=== PATIENT | female | born 1940 | race Caucasian/White ===

== ENCOUNTER 2024-11-26 14:55 | Inpatient (IN) | payer MEDICARE, BC ==
--- NOTE | 2024-11-26 15:26 | ED ---
Dizziness HPI - General Chief Complaint: Dizziness Stated Complaint: Dizziness Time Seen by Provider: 11/26/24 15:11 Source: patient, EMS, RN notes reviewed Mode of arrival: EMS Limitations: no limitations - History of Present Illness Initial Comments: This is an 83-year-old female with history of DM presenting via EMS for dizziness for the past 3 hours. Patient states she woke from a nap when she began experiencing dizziness and sensation of room spinning that worsens with position change and head movement. Patient endorses associated nausea and difficulty ambulating attributed to the dizziness. Denies fever, chills, neck stiffness, vision change, chest pain, dyspnea, palpitations, abdominal pain, vomiting/diarrhea. Denies unilateral paresthesia, hemiplegia. MD Complaint: dizziness, difficulty walking Onset/Timin -: hour(s) Timing: awoke with symptoms Description: sense of movement, "room spinning" History of Same: No History of Trauma: No Improves With: remaining still Worsens With: movement - Related Data Home Medications Medication Instructions Recorded Confirmed Enalapril [Vasotec] 2.5 mg PO DAILY 11/26/24 11/26/24 Ezetimibe [Zetia] 10 mg PO DAILY 11/26/24 11/26/24 Famotidine [Pepcid] 20 mg PO DAILY 11/26/24 11/26/24 Furosemide [Lasix] 20 mg PO DAILY 11/26/24 11/26/24 Potassium Chloride ER [K-Dur 10] 10 meq PO DAILY 11/26/24 11/26/24 Rosuvastatin [Crestor] 10 mg PO DAILY 11/26/24 11/26/24 carvediloL [Coreg] 3.125 mg PO BID 11/26/24 11/26/24 metFORMIN HCL [Glucophage] 500 mg PO BID 11/26/24 11/26/24 Allergies Allergy/AdvReac Type Severity Reaction Status Date / Time Penicillins Allergy Itching Verified 11/26/24 15:56 Review of Systems ROS Statement: Those systems with pertinent positive or pertinent negative responses have been documented in the HPI. ROS Other: All systems not noted in ROS Statement are negative. Past Medical History Past Medical History: Diabetes Mellitus History of Any Multi-Drug Resistant Organisms: None Reported Additional Past Surgical History / Comment(s): Open heart surgery Smoking Status: Never smoker Past Alcohol Use History: None Reported Past Drug Use History: None Reported General Exam Limitations: no limitations General appearance: alert, in no apparent distress Head exam: Present: atraumatic, normocephalic, normal inspection Eye exam: Present: normal appearance, PERRL, EOMI, other (Hints exams is nega tive for nystagmus/strabismus). Absent: scleral icterus, conjunctival injection, nystagmus, periorbital swelling Pupils: Present: normal accommodation ENT exam: Present: normal exam, mucous membranes moist Neck exam: Present: normal inspection. Absent: tenderness, meningismus, lymphadenopathy Respiratory exam: Present: normal lung sounds bilaterally. Absent: respiratory distress, wheezes, rales, rhonchi, stridor, accessory muscle use, decreased breath sounds, prolonged expiratory Cardiovascular Exam: Present: regular rate, normal rhythm, normal heart sounds, systolic murmur (3/6). Absent: diastolic murmur, rubs, gallop, clicks GI/Abdominal exam: Present: soft, normal bowel sounds. Absent: distended, tenderness, guarding, rebound, rigid Extremities exam: Present: normal inspection, full ROM, normal capillary refill. Absent: tenderness, pedal edema, joint swelling, calf tenderness Back exam: Present: normal inspection Neurological exam: Present: alert, oriented X3, CN II-XII intact, other (Boissevain stroke negative. Cerebellar tests including [id number], LOTUS and heel to knee tests normal) Psychiatric exam: Present: normal affect, normal mood Skin exam: Present: warm, dry, intact, normal color. Absent: rash Course Vital Signs 11/26/24 11/26/24 11/26/24 15:01 16:52 18:00 Temperature 97.7 F Pulse Rate 73 75 67 Respiratory 18 18 18 Rate Blood Pressure 136/54 149/90 140/73 O2 Sat by Pulse 98 96 94 L Oximetry Medical Decision Making - Medical Decision Making Was pt. sent in by a medical professional or institution (, PA, RELATIONS MGR, urgent care, hospital, or long term...) When possible be specific @ -No Did you speak to anyone other than the patient for history (EMS, parent, family, police, friend...)? What history was obtained from this source @ -No Did you review nursing and triage notes (agree or disagree)? Why? @ -I reviewed and agree with nursing and triage notes Were old charts reviewed (outside hosp., previous admission, EMS record, old EKG, old radiological studies, urgent care reports/EKG's, long term records)? Report findings @ -No old charts were reviewed Differential Diagnosis (chest pain, altered mental status, abdominal pain women, abdominal pain men, vaginal bleeding, weakness, fever, dyspnea, syncope, headache, dizziness, GI bleed, back pain, seizure, CVA, palpatations, mental health, musculoskeletal)? @ -Differential Dizziness: Benign paroxysmal positional Vertigo, Meniere's disease, otitis media, acoustic neuroma, vertebrobasilar insufficiency, cerebellar stroke, encephalitis, hypovolemic, arrhythmia, coronary artery syndrome, anemia, this is not meant to be an all-inclusive list EKG interpreted by me (3pts min.). @ -Sinus rhythm with first-degree AV block, QT prolongation and solitary PVC. Inferior lead Q waves noted. No obvious ST deviation or T wave inversion. Ventricular rate 69 bpm, KODI 218 ms, QRS 129 ms, QTc 469 ms. X-rays interpreted by me (1pt min.). @ -CXR shows no acute pulmonary process with epicardial leads present, contraindicating future MRI. CT interpreted by me (1pt min.). @ -Brain CT shows no acute intracranial process with remote lacunar injuries. U/S interpreted by me (1pt. min.). @ -None done What testing was considered but not performed or refused? (CT, X-rays, U/S, labs)? Why? @ -None What meds were considered but not given or refused? Why? @ -None Did you discuss the management of the patient with other professionals (professionals i.e. , PA, [facility] M[facility], lab, RT, psych nurse, social media sr strategy manager, director digital sales, teacher, driver license reviewing officer, nurse outreach case manager)? Give summary @ -Spoke to Dr. Gardner from [facility] regarding observation admission for patient. Was smoking cessation discussed for >3mins.? @ -No Was critical care preformed (if so, how long)? @ -No Were there social determinants of health that impacted care today? How? (Homelessness, low income, unemployed, alcoholism, drug addiction, transportation, low edu. Level, literacy, decrease access to med. care, senior care, rehab)? @ -No Was there de-escalation of care discussed even if they declined (Discuss DNR or withdrawal of care, Hospice)? DNR status @ -No What co-morbidities impacted this encounter? (DM, HTN, Smoking, COPD, CAD, Cancer, CVA, ARF, Chemo, Hep., AIDS, mental health diagnosis, sleep apnea, morbid obesity)? @ -None Was patient admitted / discharged? Hospital course, mention meds given and route, prescriptions, significant lab abnormalities, going to OR and other p ertinent info. @ -Patient initially provided IV normal saline, Zofran and p.o. meclizine. Lab work notable for glucose 125, BUN 19 and UTI. Troponin negative and WBC 6.60. Checks x-ray and brain CT unremarkable. Patient provided IV Rocephin. Physical exam findings, lab work and imaging unable to provide etiology of dizziness. Patient notes some relief of dizziness with meclizine but states she lives alone and is concerned of return of dizziness. Spoke to Dr. Gardner from [facility] regarding observation admission for patient. Discussed patient with Dr. Perkins. Undiagnosed new problem with uncertain prognosis? @ -No Drug Therapy requiring intensive monitoring for toxicity (Heparin, Nitro, Insulin, Cardizem)? @ -No Were any procedures done? @ -No Diagnosis/symptom? @ -Dizziness, UTI Acute, or Chronic, or Acute on Chronic? @ -Acute Uncomplicated (without systemic symptoms) or Complicated (systemic symptoms)? @ -Complicated Side effects of treatment? @ -No Exacerbation, Progression, or Severe Exacerbation? @ -No Poses a threat to life or bodily function? How? (Chest pain, USA, ME, pneumonia, PE, COPD, DKA, ARF, appy, cholecystitis, CVA, Diverticulitis, Homicidal, Suicidal, threat to staff... and all critical care pts) @ -No - Lab Data Result diagrams: 11/26/24 15:30 11/26/24 15:30 Lab Results 11/26/24 11/26/24 11/26/24 Range/Units 15:30 15:30 15:30 WBC 6.60 (4.50-10.00) 10*3/uL RBC 4.32 (4.10-5.20) 10*6/uL Hgb 12.5 (12.0-15.0) g/dL Hct 37.9 (37.2-46.3) % MCV 87.7 (80.0-97.0) fL MCH 28.9 (27.0-32.0) pg MCHC 33.0 (32.0-37.0) g/dL Plt Count 185 (140-440) 10*3/uL MPV 11.1 (9.5-12.2) fL Immature Gran % (Auto) 0.9 % Neutrophils % 70.6 % Lymphocytes % 16.8 % Monocytes % 8.0 % Eosinophils % 2.6 % Basophils % 1.1 % Immature Gran # 0.06 H (0.00-0.04) 10*3/uL Neutrophils # 4.66 (1.80-7.70) 10*3/uL Lymphocytes # 1.11 (0.90-5.00) 10*3/uL Monocytes # 0.53 (0.20-1.00) 10*3/uL Eosinophils # 0.17 (0.04-0.35) 10*3/uL Basophils # 0.07 (0.00-0.10) 10*3/uL PT (10.0-12.5) sec INR (<1.2) APTT (22.0-30.0) sec Sodium 139 (137-145) mmol/L Potassium 4.0 (3.5-5.1) mmol/L Chloride 106 (98-107) mmol/L Carbon Dioxide 24 (22-30) mmol/L Anion Gap 9 mmol/L BUN 19 H (7-17) mg/dL Creatinine 0.81 (0.52-1.04) mg/dL Est GFR (CKD-EPI)AfAm 78 (>60 ml/min/1.73 sqM) Est GFR (CKD-EPI)NonAf 67 (>60 ml/min/1.73 sqM) Glucose 125 H (74-99) mg/dL Calcium 9.0 (8.4-10.2) mg/dL Total Bilirubin 0.8 (0.2-1.3) mg/dL AST 19 (14-36) U/L ALT 11 (4-34) U/L Alkaline Phosphatase 81 (38-126) U/L Troponin I <0.012 (0.000-0.034) ng/mL Total Protein 6.3 (6.3-8.2) g/dL Albumin 3.9 (3.5-5.0) g/dL Urine Color Urine Appearance (Clear) Urine pH (5.0-8.0) Ur Specific [place] (1.001-1.035) Urine Protein (Negative) Urine Glucose (UA) (Negative) Urine Ketones (Negative) Urine Blood (Negative) Urine Nitrite (Negative) Urine Bilirubin (Negative) Urine Urobilinogen (<2.0) mg/dL Ur Leukocyte Esterase (Negative) Urine RBC (0-5) /hpf Urine WBC (0-5) /hpf Ur Squamous Epith Cells (0-4) /hpf Urine Bacteria (None) /hpf Hyaline Casts (0-2) /lpf Urine Mucus (None) /hpf Urine Yeast (Budding) (None) /hpf 11/26/24 11/26/24 Range/Units 15:30 16:51 WBC (4.50-10.00) 10*3/uL RBC (4.10-5.20) 10*6/uL Hgb (12.0-15.0) g/dL Hct (37.2-46.3) % MCV (80.0-97.0) fL MCH (27.0-32.0) pg MCHC (32.0-37.0) g/dL Plt Count (140-440) 10*3/uL MPV (9.5-12.2) fL Immature Gran % (Auto) % Neutrophils % % Lymphocytes % % Monocytes % % Eosinophils % % Basophils % % Immature Gran # (0.00-0.04) 10*3/uL Neutrophils # (1.80-7.70) 10*3/uL Lymphocytes # (0.90-5.00) 10*3/uL Monocytes # (0.20-1.00) 10*3/uL Eosinophils # (0.04-0.35) 10*3/uL Basophils # (0.00-0.10) 10*3/uL PT 11.3 (10.0-12.5) sec INR 1.0 (<1.2) APTT 21.1 L (22.0-30.0) sec Sodium (137-145) mmol/L Potassium (3.5-5.1) mmol/L Chloride (98-107) mmol/L Carbon Dioxide (22-30) mmol/L Anion Gap mmol/L BUN (7-17) mg/dL Creatinine (0.52-1.04) mg/dL Est GFR (CKD-EPI)AfAm (>60 ml/min/1.73 sqM) Est GFR (CKD-EPI)NonAf (>60 ml/min/1.73 sqM) Glucose (74-99) mg/dL Calcium (8.4-10.2) mg/dL Total Bilirubin (0.2-1.3) mg/dL AST (14-36) U/L ALT (4-34) U/L Alkaline Phosphatase (38-126) U/L Troponin I (0.000-0.034) ng/mL Total Protein (6.3-8.2) g/dL Albumin (3.5-5.0) g/dL Urine Color Yellow Urine Appearance Cloudy H (Clear) Urine pH 6.5 (5.0-8.0) Ur Specific [place] 1.022 (1.001-1.035) Urine Protein Trace H (Negative) Urine Glucose (UA) Negative (Negative) Urine Ketones 1+ H (Negative) Urine Blood Small H (Negative) Urine Nitrite Negative (Negative) Urine Bilirubin Negative (Negative) Urine Urobilinogen 4.0 (<2.0) mg/dL Ur Leukocyte Esterase Large H (Negative) Urine RBC 10 H (0-5) /hpf Urine WBC 134 H (0-5) /hpf Ur Squamous Epith Cells 6 H (0-4) /hpf Urine Bacteria Rare H (None) /hpf Hyaline Casts 1 (0-2) /lpf Urine Mucus Rare H (None) /hpf Urine Yeast (Budding) Few H (None) /hpf Disposition Clinical Impression: Dizziness, UTI (urinary tract infection) Disposition: ADMITTED IP TO THIS [facility] Condition: Fair Referrals: Juma Zimmerman MD [Primary Care Provider] - 1-2 days Time of Disposition: 18:34 Decision Date: 11/26/24 Decision Time: 18:34
[2024-11-26 15:45] LABS: Basophils # (A) 0.07 10*3/uL (0.00-0.10); Basophils % (A) 1.1 %; Eosinophils # (A) 0.17 10*3/uL (0.04-0.35); Eosinophils % (A) 2.6 %; HCT 37.9 % (37.2-46.3); HGB 12.5 g/dL (12.0-15.0); Lymphocytes # (A) 1.11 10*3/uL (0.90-5.00); Lymphocytes % (A) 16.8 %; MCH 28.9 pg (27.0-32.0); MCHC 33.0 g/dL (32.0-37.0); MCV 87.7 fL (80.0-97.0); Monocytes # (A) 0.53 10*3/uL (0.20-1.00); Monocytes % (A) 8.0 %; Neutrophils # (A) 4.66 10*3/uL (1.80-7.70); Neutrophils % (A) 70.6 %; Platelet Count 185 10*3/uL (140-440); RBC 4.32 10*6/uL (4.10-5.20); RDW 14.1 % (11.5-14.5); WBC 6.60 10*3/uL (4.50-10.00)
[2024-11-26] MEDS: SODIUM CHLORIDE 0.9% 1,000 ML IV STA (15:54)
[2024-11-26] MEDS: MECLIZINE 12.5 MG TAB PO STA (15:55)
[2024-11-26] MEDS: ONDANSETRON 4 MG/2 ML VIAL IVP STA (15:56)
[2024-11-26 15:57] LABS: ALT 11 U/L (4-34); AST 19 U/L (14-36); African American GFR (CKD) 78 (>60 ml/min/1.73 sqM); Albumin 3.9 g/dL (3.5-5.0); Alkaline Phosphatase 81 U/L (38-126); Anion Gap 9 mmol/L; Blood Urea Nitrogen 19 mg/dL (7-17); Calcium 9.0 mg/dL (8.4-10.2); Carbon Dioxide 24 mmol/L (22-30); Chloride 106 mmol/L (98-107); Glucose 125 mg/dL (74-99); Non-African American GFR(CKD) 67 (>60 ml/min/1.73 sqM); Potassium 4.0 mmol/L (3.5-5.1); Sodium 139 mmol/L (137-145); Total Protein 6.3 g/dL (6.3-8.2)
[2024-11-26 16:00] LABS: INR 1.0 (<1.2); Partial Thromboplastin Time 21.1 sec (22.0-30.0); Prothrombin Time 11.3 sec (10.0-12.5)
--- NOTE | 2024-11-26 17:02 | XR ---
EXAMINATION TYPE: XR chest 2V DATE OF EXAM: 11/26/2024 4:00 PM COMPARISON: None. CLINICAL INDICATION: Female, 83 years old with history of Dizziness, TECHNIQUE: XR chest 2V view(s) obtained. FINDINGS: The heart size is enlarged. The pulmonary vasculature is normal. The lungs are clear. Prior cardiac valve surgery. Epicardial leads are present. Sternotomy wires are present. IMPRESSION: 1. No acute pulmonary process. 2. epicardial leads present. This would contraindicate MRI [facility], Workstation: [facility], 11/26/2024 4:59 PM
[2024-11-26 17:44] LABS: Bacteria,Urine Rare /hpf; Bilirubin,Urine Negative (Negative); Blood,Urine Small (Negative); Budding Yeast,Urine Few /hpf; Color,Urine Yellow; Glucose,Urine (UA) Negative (Negative); Hyaline Casts,Urine 1 /lpf (0-2); Ketones,Urine 1+ (Negative); Leukocyte Esterase,Urine Large (Negative); Mucus,Urine Rare /hpf; Nitrite,Urine Negative (Negative); PH, Urine 6.5 (5.0-8.0); Protein,Urine Trace (Negative); RBC,Urine 10 /hpf (0-5); Specific Gravity,Urine 1.022 (1.001-1.035); Squamous Epithelial Cell,Urine 6 /hpf (0-4); Urobilinogen,Urine 4.0 mg/dL (<2.0); WBC,Urine 134 /hpf (0-5)
--- NOTE | 2024-11-26 18:43 | CT ---
EXAMINATION TYPE: CT brain wo con CT DLP: 1115.4 mGycm, Automated exposure control for dose reduction was used. DATE OF EXAM: 11/26/2024 6:35 PM COMPARISON: None. CLINICAL INDICATION:Female, 83 years old with history of dizzy, Dizziness TECHNIQUE: Brain: Multiple axial CT images of the brain were obtained without IV contrast. . Coronal and sagitta l reformats reviewed. FINDINGS: Brain: Extra-axial spaces: No abnormal extra-axial fluid collections. Ventricular system: Dilatation in proportion to cerebral atrophy. Cerebral parenchyma: Cerebral atrophy. No acute intraparenchymal hemorrhage or mass effect. The keller -white junction is well differentiated. Scattered hypoattenuating areas are seen within the periventr icular white matter. Remote lacunar injury within the posterior limb of the right internal capsule. Cerebellum: Remote small lacunar injury within the left cerebellar hemisphere. Mass effect: No evidence of midline shift. Intracranial vasculature: Atherosclerotic calcifications of the intracranial vessels. Soft tissues: Normal. Calvarium/osseous structures: No depressed skull fracture. Paranasal sinuses and mastoid air cells: Clear Visualized orbits: Bilateral aphakia IMPRESSION: 1. No acute intracranial process. 2. Remote lacunar injuries along with nonspecific white matter changes likely secondary to chronic mi croangiopathy. [facility], , 11/26/2024 6:40 PM
[2024-11-26] MEDS ORDERED: ACETAMINOPHEN TAB 325 MG TAB PO PRN (19:15)
[2024-11-26] MEDS ORDERED: NALOXONE 0.4 MG/ML 1 ML VIAL IV PRN (19:15)
[2024-11-26] MEDS ORDERED: HYDROmorphone 1 MG/ML 1 ML SYRINGE IVP PRN (19:15)
[2024-11-26] MEDS ORDERED: MECLIZINE 12.5 MG TAB PO PRN (19:22)
[2024-11-26] MEDS: SODIUM CHLORIDE 0.9% 1,000 ML IV SCH (19:46)
[2024-11-27] MEDS: ATORVASTATIN 20 MG TAB PO SCH (09:03)
[2024-11-27] MEDS: metFORMIN 500 MG TAB PO SCH (09:03)
[2024-11-27] MEDS: FUROSEMIDE 20 MG TAB PO SCH (09:03)
[2024-11-27] MEDS: FAMOTIDINE 20 MG TAB PO SCH (09:03)
[2024-11-27] MEDS: EZETIMIBE 10 MG TAB PO SCH (11:02)
[2024-11-27] MEDS: POTASSIUM CHLORIDE ER 10 MEQ TAB.ER.PRT PO SCH (11:02)
[2024-11-27] MEDS: ASPIRIN 81 MG PO SCH ×2 (14:35→14:47)
--- NOTE | 2024-11-27 15:11 | P.HPIM ---
History of Present Illness H&P Date: 11/27/24 Chief Complaint: Dizziness History of present illness; 83-year-old female with a past medical history of diabetes, hypertension, hyperlipidemia presents via EMS for dizziness. Patient states yesterday she woke up from a nap when she began experiencing dizziness and a sensation of the room spinning that got worse when she would change positions and move her head. Denies history of similar events in the past, denies the dizziness being worse with 1 side or the other when turning her head.. Admits to associated nausea and difficulty ambulating due to the dizziness. Denies fevers, chills, neck stiffness, vision changes, chest pain, dyspnea, palpitation, abdominal pain, vomiting, diarrhea, unilateral paresthesia, and hemiaplasia. While in the ER patient underwent lab work significant for WBC 6.6, hemoglobin 12.5, platelets 185, PT 11.3, INR 1, sodium 139, potassium 4, bicarb 24, BUN 19, creatinine 0.81, glucose 125, and troponin less than 0.012. Orthostatics were also performed which were negative. Patient also received a chest x-ray which showed no acute cardiopulmonary process. Patient also received EKG which showed sinus rhythm with first-degree AV block with occasional ventricular premature complexes with a ventricular rate of 69, QTc 469, no ST elevations, and no T wave inversions. Patient also received a brain CT which showed no acute intracranial process. The patient was started on IV fluids and given meclizine. At this time was determined the patient should be admitted for further workup of dizziness and potential vertigo with consultation to neurology. REVIEW OF SYSTEMS: As stated above in HPI. The rest of the 14-point review of systems is negative. PHYSICAL EXAMINATION: GENERAL: The patient is alert and oriented x3, not in any acute distress. Well developed, well nourished. HEENT: Pupils are round and equally reacting to light. EOMI. No scleral icterus. No conjunctival pallor. Normocephalic, atraumatic. CARDIOVASCULAR: S1 and S2 present. No murmurs, rubs, or gallops. PULMONARY: Chest is clear to auscultation b/l, no wheezing or crackles. ABDOMEN: Soft, nontender, nondistended, normoactive bowel sounds. No palpable organomegaly. MUSCULOSKELETAL: No joint swelling or deformity. EXTREMITIES: No cyanosis, clubbing, or pedal edema. NEUROLOGICAL: Gross neurological examination did not reveal any focal deficits. SKIN: No rashes. Assessment and Plan #Dizziness: Potentially secondary to BPPV, less likely orthostatic hypotension after normal orthostatics in the ER - Continue NS 130 cc/h -Continue meclizine 25 mg p.o. every 12 hours as needed - Neurology on consult, appreciate further recommendations - Continue cardiac telemetry - Blood culture and urine culture ordered - Orthostatics performed in the ER within normal limits - Echo with bubble study ordered - A1c lipid panel ordered - Started aspirin 81 mg daily Chronic Conditions: #Diabetes mellitus: - Continue home metformin 500 mg p.o. twice daily #Hyperlipidemia: - Continue home Lipitor 20 mg p.o. daily and Zetia 10 mg p.o. daily #Hypertension: - Continue Coreg 3.125 mg p.o. twice daily and lisinopril 5 mg p.o. daily F: NS 130 cc/h E: Potassium chloride 10 mill equivalents p.o. daily N: Heart healthy diet DVT ppx: SCDs GI ppx: Famotidine 20 mg p.o. daily CODE STATUS: Full code Dispo: Pending clinical course Sunil Pinto MD PGY-2 FM Dictation was produced using [employer] dictation software. please excuse any grammatical, word or spelling errors. Past Medical History Past Medical History: Diabetes Mellitus History of Any Multi-Drug Resistant Organisms: None Reported Additional Past Surgical History / Comment(s): Open heart surgery Smoking Status: Never smoker Past Alcohol Use History: None Reported Past Drug Use History: None Reported Medications and Allergies Home Medications Medication Instructions Recorded Confirmed Type Enalapril [Vasotec] 2.5 mg PO DAILY 11/26/24 11/26/24 History Ezetimibe [Zetia] 10 mg PO DAILY 11/26/24 11/26/24 History Famotidine [Pepcid] 20 mg PO DAILY 11/26/24 11/26/24 History Furosemide [Lasix] 20 mg PO DAILY 11/26/24 11/26/24 History Potassium Chloride ER [K-Dur 10] 10 meq PO DAILY 11/26/24 11/26/24 History Rosuvastatin [Crestor] 10 mg PO DAILY 11/26/24 11/26/24 History carvediloL [Coreg] 3.125 mg PO BID 11/26/24 11/26/24 History metFORMIN HCL [Glucophage] 500 mg PO BID 11/26/24 11/26/24 History Allergies Allergy/AdvReac Type Severity Reaction Status Date / Time Penicillins Allergy Itching Verified 11/26/24 15:56 Physical Exam Vitals: Vital Signs Temp Pulse Pulse Pulse Pulse Resp BP 11/27/24 06:43 98.3 F 58 L 14 118/68 11/27/24 01:50 98.9 F 61 15 115/66 11/27/24 00:25 61 65 55 L 11/26/24 18:00 67 18 140/73 11/26/24 16:52 75 18 149/90 11/26/24 15:01 97.7 F 73 18 136/54 BP BP BP Pulse Ox 11/27/24 06:43 92 L 11/27/24 01:50 91 L 11/27/24 00:25 104/61 110/64 116/65 11/26/24 18:00 94 L 11/26/24 16:52 96 11/26/24 15:01 98 Intake and Output 11/26/24 11/27/24 11/27/24 22:59 06:59 14:59 Other: Weight 56.699 kg 56.699 kg Results CBC & Chem 7: 11/26/24 15:30 11/26/24 15:30 Labs: Abnormal Lab Results - Last 24 Hours (Table) 11/26/24 11/26/24 11/26/24 Range/Units 15:30 15:30 15:30 Immature Gran # 0.06 H (0.00-0.04) 10*3/uL APTT 21.1 L (22.0-30.0) sec BUN 19 H (7-17) mg/dL Glucose 125 H (74-99) mg/dL Urine Appearance (Clear) Urine Protein (Negative) Urine Ketones (Negative) Urine Blood (Negative) Ur Leukocyte Esterase (Negative) Urine RBC (0-5) /hpf Urine WBC (0-5) /hpf Ur Squamous Epith Cells (0-4) /hpf Urine Bacteria (None) /hpf Urine Mucus (None) /hpf Urine Yeast (Budding) (None) /hpf 11/26/24 Range/Units 16:51 Immature Gran # (0.00-0.04) 10*3/uL APTT (22.0-30.0) sec BUN (7-17) mg/dL Glucose (74-99) mg/dL Urine Appearance Cloudy H (Clear) Urine Protein Trace H (Negative) Urine Ketones 1+ H (Negative) Urine Blood Small H (Negative) Ur Leukocyte Esterase Large H (Negative) Urine RBC 10 H (0-5) /hpf Urine WBC 134 H (0-5) /hpf Ur Squamous Epith Cells 6 H (0-4) /hpf Urine Bacteria Rare H (None) /hpf Urine Mucus Rare H (None) /hpf Urine Yeast (Budding) Few H (None) /hpf
--- NOTE | 2024-11-27 15:54 | P.CNNES ---
History of Present Illness Consult date: 11/27/24 Requesting physician: Abhishek Goodrich Reason for Consult: Dizziness/vertigo History of Present Illness: Patient is a 83-year-old left handed female, with history of hypertension, diabetes, came to the hospital by ambulance yesterday at 2:55 PM for dizziness. Patient is a poor historian, not able to tell her symptoms very clearly. Patient's son is also present by the bedside, who also does not know much details, and asks the patient herself for any questions asked to him. Patient apparently has longstanding history of migraine headaches. These "migraines" are occurring about twice a month. When she has migraine, she also gets some numbness involving the one or other forearm region and also gets dizziness with it. She states the trigger for her migraines are when she is very busy, when there is too many people around, coming and going, and a lot of "hustle and bustle" going on. She then takes it easy, sits down and takes a baby aspirin and her migraines pass, including her dizziness and numbness, and the symptoms are gone in a couple hours. Apparently yesterday morning patient was fine. At around 1 or 2 PM she was at her home, doing usual housework like picking up stuff, making bed, when she started feeling dizziness. She called her son that she is not feeling well. She was having dizziness, just like her usual dizziness she gets with migraines. However this time she did not have a headache. She called her son, who told her to call 911 and she was brought to the hospital. She did have some nausea and vomiting. Denies any visual disturbance. Denies any slurred speech facial droop or other stroke symptoms. Patient at first mentioned that this is the first time she had dizzy spell, but later she informed me about her history of migraines as above and appears that dizziness is just the usual that she gets with her migraine. At present all symptoms have resolved. 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 She also has history of some heart valve surgery. As per EMS flowsheet when they arrived, found patient in care of self. Patient states getting up from a nap and now is dizzy and cannot stand or walk. Patient states she felt fine this a.m. Denies any falls. No chest pain or shortness of breath. No abdominal pain or vomiting. Patient states severe nausea currently. No previous history of vertigo. Patient was still dizzy even laying down. Patient did have 1 episode of dry heaving during transport. Patient's vitals at the scene was blood pressure 146/81, pulse rate 85 respiration 18 saturation 97% and blood sugar 136. Patient's vitals have been stable in the ER. Orthostatics were checked and they were negative. Supine blood pressure 116/65, sitting 104/61 and standing 110/64. Blood test shows normal CBC PT PTT, CMP and troponin. UA shows large amount of leukocyte Estrace, 134 WBCs and rare bacteria. EKG showed sinus rhythm with first-degree AV block, chest x-ray shows no acute pulmonary process. Epicardial leads present. CT head revealed no acute intracranial process. Remote lacunar injuries along with nonspecific white matter changes, likely secondary to chronic microangiopathy. I personally reviewed CT head, agree with the findings. Home medications include Crestor 10 mg, metformin, Lasix, Vasotec, Coreg, Zetia, Pepcid and potassium. Patient does not take any antiplatelet medication at home. She takes a baby aspirin only 2-3 times a month when she has a "migraine". Review of Systems All pertinent positive and negative review of system mentioned HPI, and as mentioned above in detail. Past Medical History Past Medical History: Diabetes Mellitus History of Any Multi-Drug Resistant Organisms: None Reported Additional Past Surgical History / Comment(s): Open heart surgery Smoking Status: Never smoker Past Alcohol Use History: None Reported Past Drug Use History: None Reported Medications and Allergies Home Medications Medication Instructions Recorded Confirmed Type Enalapril [Vasotec] 2.5 mg PO DAILY 11/26/24 11/26/24 History Ezetimibe [Zetia] 10 mg PO DAILY 11/26/24 11/26/24 History Famotidine [Pepcid] 20 mg PO DAILY 11/26/24 11/26/24 History Furosemide [Lasix] 20 mg PO DAILY 11/26/24 11/26/24 History Potassium Chloride ER [K-Dur 10] 10 meq PO DAILY 11/26/24 11/26/24 History Rosuvastatin [Crestor] 10 mg PO DAILY 11/26/24 11/26/24 History carvediloL [Coreg] 3.125 mg PO BID 11/26/24 11/26/24 History metFORMIN HCL [Glucophage] 500 mg PO BID 11/26/24 11/26/24 History Allergies Allergy/AdvReac Type Severity Reaction Status Date / Time Penicillins Allergy Itching Verified 11/26/24 15:56 Physical Examination - Vital Signs Vital Signs: Vital Signs Temp Pulse Pulse Pulse Pulse Resp BP 11/27/24 08:00 98.2 F 63 18 11/27/24 06:43 98.3 F 58 L 14 118/68 11/27/24 01:50 98.9 F 61 15 115/66 11/27/24 00:25 61 65 55 L 11/26/24 18:00 67 18 140/73 11/26/24 16:52 75 18 149/90 11/26/24 15:01 97.7 F 73 18 136/54 BP BP BP Pulse Ox 11/27/24 08:00 101/58 96 11/27/24 06:43 92 L 11/27/24 01:50 91 L 11/27/24 00:25 104/61 110/64 116/65 11/26/24 18:00 94 L 11/26/24 16:52 96 11/26/24 15:01 98 Intake and Output 11/26/24 11/27/24 11/27/24 22:59 06:59 14:59 Intake Total 200 Balance 200 Intake: Oral 200 Other: Voiding Method Toilet Weight 56.699 kg 56.699 kg Patient is an elderly female, in no acute distress. Patient is alert awake fairly well-oriented. Speech and language functions are normal. Patient can name and repeat very well. No aphasia or dysarthria. Attention, concentration is normal and fund of knowledge is limited. On cranial nerve examination, pupils are equal, round and reacting to light, visual cherry are full on confrontation, with no neglect on double simultaneous stimulation. Extraocular muscles are intact with no nystagmus. Face is symmetric, tongue protrudes to the midline. Palatal elevation and sensation normal, hearing is moderately decreased and shoulder shrug normal, facial sensation normal. On muscle strength testing, there is no pronator drift and the strength is normal in arms and legs distally and proximally. Deep tendon reflexes are symmetric 1 at the biceps, 1 brachioradialis, 2 at the knees, and plantars downgoing bilaterally. Sensory to touch is equal with no neglect on double simultaneous stimulation. Cerebellar function showed moderate ataxia for [id number] and [id number] testing only with the left side. No ataxia on the right side. Tone and bulk of muscles normal. Gait deferred.. Patient walks with her cane. On general examination, there is no carotid bruit or murmur, S1-S2 audible. Chest is clear on consultation. Abdomen is soft nontender. No organomegaly, bowel sounds present. Peripheral pulses are present. No peripheral edema. Results - Laboratory Findings CBC and BMP: 11/26/24 15:30 11/26/24 15:30 Abnormal Lab Findings: Abnormal Labs 11/26/24 11/26/24 11/26/24 15:30 15:30 15:30 Immature Gran # 0.06 H APTT 21.1 L BUN 19 H Glucose 125 H Urine Appearance Urine Protein Urine Ketones Urine Blood Ur Leukocyte Esterase Urine RBC Urine WBC Ur Squamous Epith Cells Urine Bacteria Urine Mucus Urine Yeast (Budding) 11/26/24 16:51 Immature Gran # APTT BUN Glucose Urine Appearance Cloudy H Urine Protein Trace H Urine Ketones 1+ H Urine Blood Small H Ur Leukocyte Esterase Large H Urine RBC 10 H Urine WBC 134 H Ur Squamous Epith Cells 6 H Urine Bacteria Rare H Urine Mucus Rare H Urine Yeast (Budding) Few H Assessment and Plan Assessment: * Dizziness with nausea vomiting, possible related to her "migraines". Patient has longstanding history of migraines, which are associated with similar dizziness. However this time she did not have a migraine headache with her dizziness. Rule out cerebellar TIA. * History of CVA, with chronic left hemiataxia. * Hypertension * Diabetes * History of valvular surgery. Plan: Patient will undergo TIA workup. 2-D echo with bubble study to rule out PFO Carotid Doppler, rule out stenosis. Patient on Lipitor 20 mg daily at home. Fasting a.m. lipid panel Hemoglobin A1c B12, folate. Optimize control of blood pressure. Orthostatics checked were negative. Start aspirin regimen with 81 mg daily. Patient does not take any antiplatelet medication on a regular basis, only aspirin 81 mg twice a month as needed for migraines. Neuro checks every shift Telemetry monitoring rule out any arrhythmia PT, OT, DVT prophylaxis: Heparin 5000 units subcu every 12 hours Neurology will continue to follow. Thank you for the consult. Time with Patient: Greater than 30
--- NOTE | 2024-11-27 22:02 | US ---
EXAMINATION TYPE: US carotid duplex BILAT DATE OF EXAM: 11/27/2024 COMPARISON: NONE CLINICAL INDICATION: Female, 83 years old with history of Dizziness; No HTN. Additional History: .... TECHNIQUE: Grayscale, color Doppler and spectral Doppler evaluation of the bilateral carotid systems and vertebral arteries. Indirect Doppler criteria was utilized. FINDINGS: EXAM MEASUREMENTS: RIGHT: Peak Systolic Velocity (PSV) cm/sec ----- Right CCA: 64.2 ----- Right ICA: 97.4 ----- Right ECA: 56.7 ICA/CCA ratio: 1.5 RIGHT: End Diastole cm/sec ----- Right CCA: 17.1 ----- Right ICA: 21.5 ----- Right ECA: 0.0 LEFT: Peak Systolic Velocity (PSV) cm/sec ----- Left CCA: 55.7 ----- Left ICA: 91.8 ----- Left ECA: 70.2 ICA/CCA ratio: 1.6 LEFT: End Diastole cm/sec ----- Left CCA: 13.9 ----- Left ICA: 33.5 ----- Left ECA: 13.1 VERTEBRALS (direction of flow): Right Vertebral: Antegrade Left Vertebral: Antegrade Rhythm: Normal [employer] NOTES: Plaque in bilateral bulbs. Wall thickening bilaterally. No elevated velocities. Color Doppler imaging shows patency with blood flow throughout the carotid artery. Spectral waveforms are within normal limits. IMPRESSION: 1. Atheromatous plaquing and intimal thickening without significant flow-limiting stenosis. Criteria for Assigning % of Stenosis / Diameter reduction (Estimation based on the indirect measurements of the internal carotid artery velocities (ICA PSV). 1. Normal (no stenosis)=ICA PSV < 180 cm/s: ratio < 2.0: ICA EDV<40 cm/s. 2. Less than 50% stenosis=ICA PSV < 180 cm/s: ratio < 2.0: ICA EDV<40 cm/s. 3. 50 to 69% stenosis=ICA PSV of 180 to 230 cm/s: ration 2.0 ? 4.0: ICA EDV 40-100 cm/s. PSV 125-180 cm/sec and ICA/CCA PSV Ratio ? 2.0 is also consistent with 50-69% stenosis 4. Greater than 70% stenosis to near occlusion= ICA PSV > 230 cm/s: ratio > 4.0: ICA EDV > 100 cm/s. 5. Near occlusion= ICA PSV velocities may be low or undetectable: variable ratio and ICA EDV. 6. Total occlusion=unable to detect flow. [facility], Workstation: [facility], 11/27/2024 10:00 PM
[2024-11-27 22:34] LABS: Cholesterol 128.00 mg/dL (0.00-200.00); HDL Cholesterol 43.20 mg/dL (40.00-60.00); LDL Cholesterol,Calculated 59.6 mg/dL (0.0-131.0); Triglycerides 126.00 mg/dL (0.00-149.00); VLDL Calculation 25.20 mg/dL (5.00-40.00)
[2024-11-28 06:30] LABS: Basophils # (A) 0.06 10*3/uL (0.00-0.10); Basophils % (A) 0.6 %; Eosinophils # (A) 0.07 10*3/uL (0.04-0.35); Eosinophils % (A) 0.8 %; HCT 34.5 % (37.2-46.3); HGB 11.2 g/dL (12.0-15.0); Lymphocytes # (A) 0.87 10*3/uL (0.90-5.00); Lymphocytes % (A) 9.3 %; MCH 28.9 pg (27.0-32.0); MCHC 32.5 g/dL (32.0-37.0); MCV 88.9 fL (80.0-97.0); Monocytes # (A) 0.59 10*3/uL (0.20-1.00); Monocytes % (A) 6.3 %; Neutrophils # (A) 7.65 10*3/uL (1.80-7.70); Neutrophils % (A) 82.2 %; Platelet Count 164 10*3/uL (140-440); RBC 3.88 10*6/uL (4.10-5.20); RDW 14.2 % (11.5-14.5); WBC 9.31 10*3/uL (4.50-10.00)
[2024-11-28 06:53] LABS: ALT 10 U/L (4-34); AST 20 U/L (14-36); African American GFR (CKD) 82 (>60 ml/min/1.73 sqM); Albumin 3.2 g/dL (3.5-5.0); Alkaline Phosphatase 62 U/L (38-126); Anion Gap 7 mmol/L; Blood Urea Nitrogen 13 mg/dL (7-17); Calcium 8.2 mg/dL (8.4-10.2); Carbon Dioxide 23 mmol/L (22-30); Chloride 111 mmol/L (98-107); Glucose 115 mg/dL (74-99); Non-African American GFR(CKD) 71 (>60 ml/min/1.73 sqM); Potassium 3.7 mmol/L (3.5-5.1); Sodium 141 mmol/L (137-145); Total Protein 5.5 g/dL (6.3-8.2)
[2024-11-28] MEDS: ONDANSETRON 4 MG/2 ML VIAL IVP PRN (06:58)
[2024-11-28] MEDS: CYANOCOBALAMIN 1,000 MCG/ML 1 ML VIAL IM ONE (16:56)
--- NOTE | 2024-11-28 17:22 | P.PN ---
Subjective Chief Complaint: Dizziness History of present illness; 83-year-old female with a past medical history of diabetes, hypertension, hyperlipidemia presents via EMS for dizziness. Patient states yesterday she woke up from a nap when she began experiencing dizziness and a sensation of the room spinning that got worse when she would change positions and move her head. Denies history of similar events in the past, denies the dizziness being worse with 1 side or the other when turning her head.. Admits to associated nausea and difficulty ambulating due to the dizziness. Denies fevers, chills, neck stiffness, vision changes, chest pain, dyspnea, palpitation, abdominal pain, vomiting, diarrhea, unilateral paresthesia, and hemiaplasia. While in the ER patient underwent lab work significant for WBC 6.6, hemoglobin 12.5, platelets 185, PT 11.3, INR 1, sodium 139, potassium 4, bicarb 24, BUN 19, creatinine 0.81, glucose 125, and troponin less than 0.012. Orthostatics were also performed which were negative. Patient also received a chest x-ray which showed no acute cardiopulmonary process. Patient also received EKG which showed sinus rhythm with first-degree AV block with occasional ventricular premature complexes with a ventricular rate of 69, QTc 469, no ST elevations, and no T wave inversions. Patient also received a brain CT which showed no acute intracranial process. The patient was started on IV fluids and given meclizine. 11/28/2024: Patient seen at bedside, no complaints at this time, no symptoms. Mild dizziness on ambulation otherwise mostly resolved. At this time was determined the patient should be admitted for further workup of dizziness and potential vertigo with consultation to neurology. REVIEW OF SYSTEMS: As stated above in HPI. The rest of the 14-point review of systems is negative. PHYSICAL EXAMINATION: GENERAL: The patient is alert and oriented x3, not in any acute distress. Well developed, well nourished. HEENT: Pupils are round and equally reacting to light. EOMI. No scleral icterus. No conjunctival pallor. Normocephalic, atraumatic. CARDIOVASCULAR: S1 and S2 present. No murmurs, rubs, or gallops. PULMONARY: Chest is clear to auscultation b/l, no wheezing or crackles. ABDOMEN: Soft, nontender, nondistended, normoactive bowel sounds. No palpable organomegaly. MUSCULOSKELETAL: No joint swelling or deformity. EXTREMITIES: No cyanosis, clubbing, or pedal edema. NEUROLOGICAL: Gross neurological examination did not reveal any focal deficits. SKIN: No rashes. Assessment and Plan #Dizziness: Potentially secondary to BPPV, less likely orthostatic hypotension after normal orthostatics in the ER -Carotid doppler study negative for stenosis -2D echo pending - Continue NS 130 cc/h -Continue meclizine 25 mg p.o. every 12 hours as needed - Neurology on consult, appreciate further recommendations Neurochecks every shift, echo, orthostats, lipid panel, B12 folate - Continue cardiac telemetry - Blood culture and urine culture ordered - Orthostatics performed in the ER within normal limits - Echo with bubble study ordered - A1c lipid panel ordered - Started aspirin 81 mg daily Chronic Conditions: #Diabetes mellitus: - Continue home metformin 500 mg p.o. twice daily #Hyperlipidemia: - Continue home Lipitor 20 mg p.o. daily and Zetia 10 mg p.o. daily #Hypertension: - Continue Coreg 3.125 mg p.o. twice daily and lisinopril 5 mg p.o. daily F: NS 130 cc/h E: Potassium chloride 10 mill equivalents p.o. daily N: Heart healthy diet DVT ppx: SCDs GI ppx: Famotidine 20 mg p.o. daily CODE STATUS: Full code Dispo: Pending clinical course Objective - Vital Signs Vital signs: Vital Signs Temp 98.7 F 11/28/24 07:00 Pulse 75 11/28/24 07:00 Resp 18 11/28/24 02:00 BP 119/71 11/28/24 07:00 Pulse Ox 95 11/28/24 07:00 FiO2 Intake & Output 11/27/24 11/28/24 11/28/24 18:59 06:59 18:59 Intake Total 200 Balance 200 Weight 56.699 kg Intake: Oral 200 Other: Voiding Method Toilet # Voids 2 1 - Labs CBC & Chem 7: 11/28/24 06:03 11/28/24 06:03 Labs: Abnormal Lab Results - Last 24 Hours (Table) 11/28/24 11/28/24 Range/Units 06:03 06:03 RBC 3.88 L (4.10-5.20) 10*6/uL Hgb 11.2 L (12.0-15.0) g/dL Hct 34.5 L (37.2-46.3) % Immature Gran # 0.07 H (0.00-0.04) 10*3/uL Lymphocytes # 0.87 L (0.90-5.00) 10*3/uL Chloride 111 H (98-107) mmol/L Glucose 115 H (74-99) mg/dL Calcium 8.2 L (8.4-10.2) mg/dL Total Protein 5.5 L (6.3-8.2) g/dL Albumin 3.2 L (3.5-5.0) g/dL Microbiology - Last 24 Hours (Table) 11/26/24 18:49 Blood Culture - Preliminary Blood 11/26/24 16:51 Urine Culture - Preliminary Urine,Voided Strep agalactiae - (group b)
--- NOTE | 2024-11-28 18:23 | P.PN ---
Subjective Progress Note Date: 11/28/24 Patient was seen for a follow-up. Patient is laying comfortably in the bed. Patient's son was also present by the bedside. Offers no new complaints. Objective - Vital Signs Vital signs: Vital Signs Temp 98.1 F 11/28/24 13:42 Pulse 60 11/28/24 13:42 Resp 15 11/28/24 13:42 BP 103/63 11/28/24 13:42 Pulse Ox 94 L 11/28/24 13:42 FiO2 Intake & Output 11/27/24 11/28/24 11/28/24 18:59 06:59 18:59 Intake Total 200 1373 Balance 200 1373 Weight 56.699 kg Intake: Oral 200 1373 Other: Voiding Method Toilet Toilet # Voids 2 1 3 # Bowel Movements 1 - Exam Patient's mentation remains unchanged. Continues to be poor historian. Patient is very pleasant. - Labs CBC & Chem 7: 11/28/24 06:03 11/28/24 06:03 Labs: Abnormal Lab Results - Last 24 Hours (Table) 11/28/24 11/28/24 Range/Units 06:03 06:03 RBC 3.88 L (4.10-5.20) 10*6/uL Hgb 11.2 L (12.0-15.0) g/dL Hct 34.5 L (37.2-46.3) % Immature Gran # 0.07 H (0.00-0.04) 10*3/uL Lymphocytes # 0.87 L (0.90-5.00) 10*3/uL Chloride 111 H (98-107) mmol/L Glucose 115 H (74-99) mg/dL Calcium 8.2 L (8.4-10.2) mg/dL Total Protein 5.5 L (6.3-8.2) g/dL Albumin 3.2 L (3.5-5.0) g/dL Microbiology - Last 24 Hours (Table) 11/26/24 18:49 Blood Culture - Preliminary Blood 11/26/24 16:51 Urine Culture - Preliminary Urine,Voided Strep agalactiae - (group b) Assessment and Plan Assessment: * Dizziness with nausea vomiting, possible related to her "migraines". Patient has longstanding history of migraines, which are associated with similar dizziness. However this time she did not have a migraine headache with her dizziness. Rule out cerebellar TIA. * History of CVA, with chronic left hemiataxia. * Hypertension * Diabetes * History of valvular surgery. Plan: Patient will undergo TIA workup. 2-D echo with bubble study to rule out PFO, completed, results pending. Carotid Doppler revealed atheromatous plaquing and intimal thickening without significant flow-limiting stenosis. Antegrade flow in both vertebral arteries. Fasting a.m. lipid panel cholesterol 128, LDL 59, HDL 43 and triglycerides 126. Continue Lipitor 20 mg daily (home dose) Hemoglobin A1c 5.8 B12 285, folate 14.10. Optimize control of blood pressure. Orthostatics checked were negative. Start aspirin regimen with 81 mg daily. Patient does not take any antiplatelet medication on a regular basis, only aspirin 81 mg twice a month as needed for migraines. Neuro checks every shift Telemetry monitoring rule out any arrhythmia PT, OT, DVT prophylaxis: Heparin 5000 units subcu every 12 hours Neurologically clear for discharge, if the 2D echo comes back normal.
[2024-11-29] MEDS: CYANOCOBALAMIN 500 MCG TAB PO SCH (08:49)
--- NOTE | 2024-11-29 13:53 | CA ---
Transthoracic Echo Report Name: Jannet Valverde Age: 83 Gender: F : 1940 Exam Date: 11/27/2024 14:55 Exam Location: [place] [facility] Ht (in): 65 Wt (lb): 160 Ordering Physician: Nydia Moise MD Attending/Referring Phys: Area Forester Elizabeth Sherman RDCS Procedure CPT: Indications: TIA vs vertigo, Other cardiomyopathies Cardiac Hx: Technical Quality: Fair Contrast 1: Agitated Saline Total Dose (mL): 10 Contrast 2: Total Dose (mL): MEASUREMENTS (Male / Female) Normal Values 2D ECHO LV Diastolic Diameter PLAX 5.0 cm 4.2 - 5.9 / 3.9 - 5.3 cm LV Systolic Diameter PLAX 3.9 cm IVS Diastolic Thickness 1.1 cm 0.6 - 1.0 / 0.6 - 0.9 cm LVPW Diastolic Thickness 1.3 cm 0.6 - 1.0 / 0.6 - 0.9 cm LV Relative Wall Thickness 0.5 RV Internal Dim ED PLAX 2.8 cm LVOT Diameter 1.6 cm LA Systolic Diameter LX 4.0 cm 3.0 - 4.0 / 2.7 - 3.8 cm LV Diastolic Volume MOD BP 141.5 cm??? 67 - 155 / 56 - 104 cm??? LV Systolic Volume MOD BP 82.0 cm??? - 58 / 19 - 49 cm??? LV Ejection Fraction MOD BP 42.1 % >= 55 % LV Cardiac Index MOD BP 1877.1 cm???/min???m??? LV Diastolic Volume MOD 4C 136.7 cm??? LV Systolic Volume MOD 4C 90.2 cm??? LV Ejection Fraction MOD 4C 34.0 % LV Cardiac Index MOD 4C 1467.5 cm???/min???m??? LV Diastolic Length 4C 8.6 cm LV Systolic Length 4C 7.2 cm LV Diastolic Volume MOD 2C 144.9 cm??? LV Systolic Volume MOD 2C 73.5 cm??? LV Ejection Fraction MOD 2C 49.2 % LV Cardiac Index MOD 2C 2249.3 cm???/min???m??? LV Diastolic Length 2C 8.5 cm LV Systolic Length 2C 7.1 cm LA Volume 61.7 cm??? 18 - 58 / 22 - 52 cm??? LA Volume Index 33.5 cm???/m??? 16 - 28 cm???/m??? Ascending Aorta Diameter 3.1 cm M-MODE Aortic Root Diameter MM 3.0 cm AV Cusp Separation MM 1.8 cm DOPPLER AV Peak Velocity 123.1 cm/s AV Peak Gradient 6.1 mmHg LVOT Peak Velocity 90.8 cm/s LVOT Peak Gradient 3.3 mmHg AV Area Cont Eq pk 1.6 cm??? MV Peak Velocity 209.0 cm/s MV Peak Gradient 17.5 mmHg MV Mean Velocity 97.1 cm/s MV Mean Gradient 5.0 mmHg MV Velocity Time Integral 64.1 cm MV Area PHT 1.6 cm??? MR Peak Velocity 444.2 cm/s MR Peak Gradient 78.9 mmHg Mitral E Point Velocity 182.7 cm/s Mitral A Point Velocity 40.4 cm/s Mitral E to A Ratio 4.5 MV Deceleration Time 482.6 ms TR Peak Velocity 305.8 cm/s TR Peak Gradient 37.4 mmHg Right Ventricular Systolic Press 52.4 mmHg FINDINGS Left Ventricle Left ventricular ejection fraction is estimated at 35-40 %. Mild concentric LVH. Moderately decreased left ventricular ejection fraction. To mid inferior inferolateral wall hypokinesia. Right Ventricle Normal right ventricular size. Right ventricular hypertrophy. Moderate to severe pulmonary hypertension. Right ventricular systolic pressure estimated at 52 mm hg. Right Atrium Normal right atrial size. No right atrial thrombus or mass seen. Negative agitated saline bubble study for right to left shunt. Left Atrium Mildly increased left atrial diameter. Mildly increased left atrial volume. Mildly increased left atrial area. Mitral Valve Mitral valve thickened. Moderate mitral annular calcification. Mild mitral stenosis. Moderate mitral regurgitation. Aortic Valve Aortic valve not well visualized. No aortic stenosis. No aortic regurgitation. Tricuspid Valve Structurally normal tricuspid valve. Moderate tricuspid regurgitation. Pulmonic Valve Pulmonic valve not well visualized. Trace pulmonic regurgitation. Pericardium No pericardial effusion. No pleural effusion. Aorta Normal size aortic root and proximal ascending aorta. CONCLUSIONS LVEF 35% Basal to mid inferior inferolateral wall hypokinesia. Normal RV size and systolic function. Severe pulmonary hypertension with RVSP of 52 mmHg Mild left atrial dilatation Mitral annular calcification with moderate regurgitation, mild stenosis. Moderate tricuspid regurgitation No evidence of [id number] intracardiac shunting on bubble study. Previewed by: Dr Chele Guallpa (Electronically Signed) Final Date: 28 November 2024 12:20
[2024-11-29 14:47] VITALS: BP 128/71; PULSE 72; RESP 17; TEMP 99.3
--- NOTE | 2024-11-29 15:11 | P.DS ---
Providers Date of admission: 11/26/24 23:53 Attending physician: Dg Gardner MD Consults: 11/26/24 19:15 Consult Physician Stat Consulting Provider: Nydia Moise Reason/Comments: Dizziness/vertigo Do you want consulting provider notified?: Yes, Notify in am Primary care physician: Juma Zimmerman Hospital Course: Discharge Diagnosis: #Dizziness: Potentially secondary to BPPV, less likely orthostatic hypotension after normal orthostatics in the ER # History of migraines #Diabetes mellitus: #Hyperlipidemia: #Hypertension: Hospital Course: 83-year-old female with a past medical history of diabetes, hypertension, hyperlipidemia presents via EMS for dizziness. Patient states yesterday she woke up from a nap when she began experiencing dizziness and a sensation of the room spinning that got worse when she would change positions and move her head. Denies history of similar events in the past, denies the dizziness being worse with 1 side or the other when turning her head.. Admits to associated nausea and difficulty ambulating due to the dizziness. Denies fevers, chills, neck stiffness, vision changes, chest pain, dyspnea, palpitation, abdominal pain, vomiting, diarrhea, unilateral paresthesia, and hemiaplasia. While in the ER patient underwent lab work significant for WBC 6.6, hemoglobin 12.5, platelets 185, PT 11.3, INR 1, sodium 139, potassium 4, bicarb 24, BUN 19, creatinine 0.81, glucose 125, and troponin less than 0.012. Orthostatics were also performed which were negative. Patient also received a chest x-ray which showed no acute cardiopulmonary process. Patient also received EKG which showed sinus rhythm with first-degree AV block with occasional ventricular premature complexes with a ventricular rate of 69, QTc 469, no ST elevations, and no T wave inversions. Patient also received a brain CT which showed no acute intracranial process. The patient was started on IV fluids and given meclizine. At this time was determined the patient should be admitted for further workup of dizziness and potential vertigo with consultation to neurology. She received an echocardiogram with Doppler study which was stable from previous exams. She also received a carotid artery Doppler study which did not reveal any restricted flow. She also received a lipid panel folates and B12 all within normal limits. Studies were negative for for any acute process, she will be discharged home continuing antilipid and antihypertensive therapy as well as changing from aspirin as needed to daily. At time of discharge she is medically optimized with follow-up scheduled with primary care and neurology outpatient. Pt seen and examined at bedside: No complaints at this time, dizziness has almost completely resolved. Vital signs reveiwed and stable: General: non toxic, no distress, appears at stated age, normal weight Derm: no unusual rashes/lesions, warm Head: atraumatic, normocephalic, symmetric Eyes: EOMI, no lid lag, anicteric sclera, pupils equal round reactive to light ENT: Nose and ears atraumatic Neck: No cervical lymphadenopathy, trachea midline, supple Mouth: no lip lesion, mucus membranes moist Cardiovascular: S1S2 reg, no murmur, positive dorsalis pedis pulse bilateral, no edema Lungs: Decreased air entry bilaterally, no rhonchi, no rales, no accessory muscle use Abdominal: soft, nontender to palpation, no guarding Ext: muscle strength 5 out of 5 in all 4 extremities grossly, no gross muscle atrophy, no contractures, Neuro: CN II-XI grossly intact, no gross focal neuro deficits Psych: Alert, oriented, appropriate affect A total of 30 minutes were spent preparing this complex discarge summary. Patient was discharged on 11/29/2024. Patient Condition at Discharge: Fair Plan - Discharge Summary New Discharge Prescriptions: New Aspirin 81 mg PO DAILY #30 tab Continue Potassium Chloride ER [K-Dur 10] 10 meq PO DAILY Famotidine [Pepcid] 20 mg PO DAILY Ezetimibe [Zetia] 10 mg PO DAILY carvediloL [Coreg] 3.125 mg PO BID Rosuvastatin [Crestor] 10 mg PO DAILY metFORMIN HCL [Glucophage] 500 mg PO BID Furosemide [Lasix] 20 mg PO DAILY Enalapril [Vasotec] 2.5 mg PO DAILY Discharge Medication List Enalapril [Vasotec] 2.5 mg PO DAILY 11/26/24 [History] Ezetimibe [Zetia] 10 mg PO DAILY 11/26/24 [History] Famotidine [Pepcid] 20 mg PO DAILY 11/26/24 [History] Furosemide [Lasix] 20 mg PO DAILY 11/26/24 [History] Potassium Chloride ER [K-Dur 10] 10 meq PO DAILY 11/26/24 [History] Rosuvastatin [Crestor] 10 mg PO DAILY 11/26/24 [History] carvediloL [Coreg] 3.125 mg PO BID 11/26/24 [History] metFORMIN HCL [Glucophage] 500 mg PO BID 11/26/24 [History] Aspirin 81 mg PO DAILY #30 tab 11/29/24 [Rx] Follow up Appointment(s)/Referral(s): Juma Zimmerman MD [Primary Care Provider] - 1-2 days [facility], [NON-STAFF] - 1 Week Patient Instructions/Handouts: Benign Paroxysmal Positional Vertigo (DC) Discharge Disposition: HOME SELF-CARE
== END 2024-11-29 15:37 | disposition home or self-care (01) | DRG 149 ==
LOC: EC 14:55 → 1SOBS 23:53 → OBSVTOIN 11-29 08:46
PROVIDERS: ADMIT Internal Medicine; ATTEND Internal Medicine
DX: H81.13 Benign paroxysmal vertigo, bilateral (principal); I69.354 Hemiplegia and hemiparesis following cerebral infarction affecting left non-dominant side; E11.9 Type 2 diabetes mellitus without complications; I10 Essential (primary) hypertension; N39.0 Urinary tract infection, site not specified; I44.0 Atrioventricular block, first degree; E78.5 Hyperlipidemia, unspecified; G43.909 Migraine, unspecified, not intractable, without status migrainosus; Z79.84 Long term (current) use of oral hypoglycemic drugs; Z79.899 Other long term (current) drug therapy; Z88.0 Allergy status to penicillin
CPT/HCPCS: 36415; 70450; 71046; 80053; 80061; 81001; 82607; 82746; 83036; 84484; 85025; 85610; 85730; 87040; 87086; 93005; 93306; 93880; 96361; 96365; 96375; 99285